=== PATIENT | female | born 1985 | race Caucasian/White ===

== ENCOUNTER 2018-04-12 16:13 | Emergency (ER) | payer OTHER ==
[~2018-04-12] VITALS: Ht 170.2 cm; Wt 66.7 kg
--- NOTE | 2018-04-12 16:15 | NUR ---
PT BIB SELF. COMP OF LOWER LEG PAIN STARTING FROMHER BACK. AOX4.A AMBULATORY W.STEADY GAIT. NO SOB/PAIN NOTED. AWAITING MD HINOJOSA.
[2018-04-12] MEDS ORDERED: IBU 800 MG TABLET (16:27)
[2018-04-12] MEDS ORDERED: METHYLPREDNISOLONE 4 MG DOSEPK (16:27)
[2018-04-12] MEDS ORDERED: HYDROCODONE-ACETAMIN 5-325 MG (16:27)
[2018-04-12] MEDS ORDERED: METHOCARBAMOL 500 MG TABLET (16:27)
[2018-04-12] MEDS ORDERED: KETOROLAC TROMETHAMINE INJ 30 MG/ML VIAL ONE (16:55)
[2018-04-12] MEDS ORDERED: HYDROCODONE/APAP 5/325MG 1 EACH TABLET ONE (16:56)
[2018-04-12] MEDS ORDERED: HYDROCODONE/APAP 5/325MG 1 EACH TABLET PO ONE (17:00)
[2018-04-12] MEDS ORDERED: KETOROLAC TROMETHAMINE INJ 60 MG/2 ML VIAL IM ONE (17:00)
[2018-04-12 18:05] VITALS: BP 130/75
== END 2018-04-12 18:05 | disposition home or self-care (01) ==
LOC: ER 16:15
DX: M54.16 Radiculopathy, lumbar region (principal); G89.29 Other chronic pain; M54.42 Lumbago with sciatica, left side; M48.00 Spinal stenosis, site unspecified; Z60.2 Problems related to living alone
CPT/HCPCS: 96372; 99283; A4606; J1885; Z7610

== ENCOUNTER 2018-07-20 08:59 | Emergency (ER) | payer OTHER ==
[~2018-07-20] VITALS: Ht 160 cm; Wt 63.5 kg
[2018-07-20 08:59] VITALS: BP 120/72
[~2018-07-20 08:59] MED LIST: HYDROCODONE-ACETAMIN 5-325 MG; IBU 800 MG TABLET; METHOCARBAMOL 500 MG TABLET; METHYLPREDNISOLONE 4 MG DOSEPK
--- NOTE | 2018-07-20 09:45 | NUR ---
Patient discharged to home in stable condition. Written and verbal after care instructions given. Patient verbalizes understanding of instruction.
== END 2018-07-20 09:47 | disposition home or self-care (01) ==
LOC: ER 09:02
DX: R19.7 Diarrhea, unspecified (principal); B37.3 Candidiasis of vulva and vagina; J06.9 Acute upper respiratory infection, unspecified; M54.42 Lumbago with sciatica, left side; Z60.2 Problems related to living alone
CPT/HCPCS: 99283; A4606

== ENCOUNTER 2018-10-06 12:04 | Emergency (ER) | payer OTHER ==
[~2018-10-06] VITALS: Ht 160 cm; Wt 65.8 kg
[2018-10-06 12:15] VITALS: BP 146/89
[2018-10-06] MEDS ORDERED: IBUPROFEN 600 MG TABLET PO ONE (12:49)
[2018-10-06] MEDS: IBUPROFEN 600 MG TABLET PO ONE (13:05)
== END 2018-10-06 14:26 | disposition home or self-care (01) ==
LOC: ER 12:04
DX: S82.491A Other fracture of shaft of right fibula, initial encounter for closed fracture (principal); Z60.2 Problems related to living alone; W10.8XXA Fall (on) (from) other stairs and steps, initial encounter; Y93.89 Activity, other specified; Y92.89 Other specified places as the place of occurrence of the external cause; Y99.8 Other external cause status
CPT/HCPCS: 73564-TC; 73590-TC

== ENCOUNTER 2019-01-28 11:23 | Emergency (ER) | payer OTHER ==
[~2019-01-28] VITALS: Ht 160 cm; Wt 59.0 kg
--- NOTE | 2019-01-28 11:31 | NUR ---
CAME IN FOR LEFT FOOT PAIN,HIT THE STAIRS THIS MORNING, TO ER BED 10, PROVIDED W WARM BLANKET, AWAITING MD HINOJOSA.
--- NOTE | 2019-01-28 12:22 | NUR ---
GABY GUERRERO AT BEDSIDE
[2019-01-28] MEDS ORDERED: IBUPROFEN 600 MG TABLET PO ONE ×2 (12:30→12:37)
--- NOTE | 2019-01-28 12:32 | NUR ---
VOLUNTEER RECRUITMENT COORDINATOR AT BEDSIDE
--- NOTE | 2019-01-28 13:25 | NUR ---
TECH AT BEDSIDE FOR NIMA TAPE AND HARD FOOT SOLE.
--- NOTE | 2019-01-28 13:30 | NUR ---
Patient discharged to home in stable condition. Written and verbal after care instructions given. Patient verbalizes understanding of instruction.
[2019-01-28 13:42] VITALS: BP 110/72
== END 2019-01-28 13:32 | disposition home or self-care (01) ==
LOC: ER 11:23
DX: M79.675 Pain in left toe(s) (principal); Z79.899 Other long term (current) drug therapy; W22.8XXA Striking against or struck by other objects, initial encounter; Y93.01 Activity, walking, marching and hiking; Y92.89 Other specified places as the place of occurrence of the external cause; Y99.8 Other external cause status
CPT/HCPCS: 73660-TC